=== PATIENT | male | born 1985 | race Caucasian/White ===

== ENCOUNTER 2022-08-02 14:40 | Outpatient (CLI) | payer OTHER ==
--- NOTE | 2022-08-02 15:26 | Sleep Patient Instructions ---
Sleep Center Visit Summary - Patient Visit Information Reason for Visit: 9 month Followup - Patient Instructions Instructions Attached: Sleep Study Home Monitor, Sleep Study Additional Instructions: You will be completing a sleep study, either an in-lab polysomnography (PSG) or home sleep study (HST). You will follow-up in the sleep care office after the sleep study is completed to hear the results and talk about therapy, if needed. - Clinic Information Contact: [facility] [address] [place] [id number] [email or web address] T: [phone]
--- NOTE | 2022-08-02 15:28 | SLEEP CARE CONSULTATION ---
Information from patient questionnaire entered by Odilia Crawford. I have reviewed and concur with the information entered by Odilia Crawford. This document represents the service I personally performed and the decisions made by me, Kateryna Avalos ARNP. History of Present Illness Service Date and Time: 08/02/2022 1440 Reason for follow up: other (9 MONTH F/U STUDY NOT DONE) Prior sleep studies: No HPI additional information: I had the pleasure of seeing KERRIE BANEGAS today regarding the possibility of him having a sleep disorder. His current complaints are unrefreshed sleep, snoring and excessive daytime sleepiness. I saw him in the office about 9 months ago and ordered a sleep study but it was not completed. He had to deploy for work and was unable to get this done. The patient tells me that he normally goes to bed around 8-9 pm, and it takes him approximately 1 minute to fall asleep. He has been told that he snores loudly and irregularly at night. He has been observed to stop breathing in his sleep. His bed partner can still sleep in the same bed. His will nudge him to turn over to reduce snoring. He can recall waking up on the average of 2-3 times during the night. Most of the time he wakes up because of waking him up or need bathroom. He has not awakened for his own snoring, choking, and having to gasp for air. There is a lot of tossing and turning in his sleep. Generally there is no recollection of dreams. He usually wakes up at 0400 and does not feel refreshed. He sometimes has a morning headache. During the day he complains of feeling sleepy and fatigued. He has never fallen asleep while driving nor has any accident due to sleepiness. He usually does not take naps during the day. If he naps, upon falling asleep during the day he denies having vivid dreams. There is no somniloquy (sleep talking) or somnambulism (sleep walking). He has experienced sleep paralysis but no cataplexy, or symptoms of restless leg syndrome. He denies having impaired concentration during the day. Sleep Study - Results Prior sleep studies: No Subjective Initial [place] Sleepiness Scale score: 8 (10/20/2021) Current [place] Sleepiness Scale score: 9 (08/02/22) Allergies and Home Medications Known drug allergies: No Drug allergies reviewed: Yes Home medication list reviewed: Yes (no changes) Review of Systems Review of systems same as previous: Yes (no changes) Physical Exam Vital signs obtained and entered by: ODILIA Harkins MA Blood Pressure: 138/86 (LEFT ARM) Cuff size: regular Heart Rate: 72 O2 Saturation: 98 Height: 6 ft Weight: 235 lb Body Mass Index: 31.8 BMI Classification: Obese Impression and Plan 1. Suspected Obstructive Sleep Apnea-Hypopnea Syndrome, as loud and irregular snoring, observed cessation of breath while asleep, unrefreshed sleep, and daytime fatigue. Narrow oropharynx and obesity are common predisposing factors for obstructive sleep apnea-hypopnea syndrome. I recommend proceeding to polysomnography to confirm the diagnosis and to assess severity. If the patient has significant sleep disordered breathing, a manual CPAP titration study will also be performed to find the optimal treatment pressure. I informed the patient of what the sleep studies involve and after some discussion, obtained agreement to proceed. The pathophysiology of obstructive sleep apnea-hypopnea syndrome was discussed with the patient and health risks of cardiovascular and cerebrovascular disease if not treated. Risks of drowsy driving discussed in detail and patient advised to avoid long distance driving and to stock puller at the first sign of drowsiness. Patient agreed to plan. His BMI is 31.8. * Schedule polysomnography +- manual CPAP titration study and return in 1-2 weeks after the study to discuss result and initiate therapy. * Avoid long distance driving or driving when feeling sleepy. * Avoid alcohol, sedative and muscle relaxant around bedtime. * Attempt to lose weight. * Review instructions provided by trained office staff on how to prepare for the sleep study. * Return for follow-up after sleep study completed. Counseling Topics: Weight loss health impact Visit Type: In Office Time Spent with Patient (minutes): 20 Provider Statement: I spent 100% of the Face to Face Visit with the patient with greater than 50% spent counseling the patient and coordination of care.
[2022-08-02 15:30] VITALS: BP 138/86
== END 2022-08-02 14:41 | disposition home or self-care (01) ==
LOC: SC 14:40
PROVIDERS: ATTEND Nurse Practitioner Family
DX: R06.83 Snoring (principal); G47.8 Other sleep disorders; R06.81 Apnea, not elsewhere classified; R53.83 Other fatigue; E66.9 Obesity, unspecified; Z68.31 Body mass index [BMI] 31.0-31.9, adult
CPT/HCPCS: 99212; 99213

== ENCOUNTER 2022-09-24 12:29 | Outpatient (CLI) | payer OTHER | END 2022-09-24 12:30 | disposition home or self-care (01) | LOC: SC 12:29 | PROVIDERS: ATTEND Nurse Practitioner Family | DX: G47.33 Obstructive sleep apnea (adult) (pediatric) (principal); R09.02 Hypoxemia; E66.9 Obesity, unspecified; Z68.31 Body mass index [BMI] 31.0-31.9, adult | CPT/HCPCS: 95806 ==

== ENCOUNTER 2022-10-18 17:02 | Outpatient (CLI) | payer OTHER ==
--- NOTE | 2022-10-18 16:48 | SLEEP CARE CONSULTATION ---
Information from patient questionnaire entered by Odilia Crawford. I have reviewed and concur with the information entered by Odilia Crawford. This document represents the service I personally performed and the decisions made by me, Kateryna Avalos ARNP. History of Present Illness Service Date and Time: 10/18/2022 1620 Initial [place] Sleepiness Scale score: 8 (10/20/2021) Current [place] Sleepiness Scale score: 9 (10/18/22) Additional HPI information: KERRIE BANEGAS returns via video telehealth visit for follow up and results of the recently performed home sleep study. I explained the pathophysiology behind obstructive sleep apnea. We then spent quite a bit of time discussing different treatment options. For mild obstructive sleep apnea, surgery and oral appliance are alternatives to nasal CPAP therapy but in moderate or severe cases, nasal CPAP is the most effective and reliable treatment. Because apnea is primarily in supine position, then positional management therapy could be effective. Methods discussed such as positioning with pillows, using a T-shirt with tennis balls in the back or commercial products that have a pillow format on back to prevent supine sleep. I reviewed the impact of weight changes on sleep apnea and strongly recommended losing weight. After some discussion, the patient opted to go with the nasal CPAP therapy. Nasal autoCPAP set at 4-15 cmH20 will be ordered with rationale explained. A manual titration study will be ordered if unable to find optimal pressure with office adjustments. I explained how CPAP machine works and what to expect when using the machine. Using CPAP every night in order to get used to it was emphasized. Patient advised to put CPAP mask on before getting into bed so as not to fall asleep without CPAP. To assist acclimation to CPAP use, it could also be used for a short time during day while reading or watching TV. The patient was instructed to call the CPAP supplier to discuss any mechanical problem that may occur. If the mask given is uncomfortable or is difficult to keep on through the night even with adjustment, contact the CPAP supplier as many will replace with another mask style if notified before 30 days. If snoring or perceives is not getting enough air or too much air from the machine, notify this office. Patient counseled not drink alcohol less than 4 hours before bedtime as it can increase snoring and apnea. Patient was cautioned about risks of drowsy driving until sleepiness symptoms resolve. Patient denies drowsy driving. Sleep Study - Results Type of Sleep Study: Home sleep study (COMPLETED 09/24/22) Prior sleep studies: No Polysomnography/Home Sleep Study results: Physician Impression: The quality of the study is good. The length of the study is adequate (> 240 minutes). Please also see the tabulated and graphic data. 1. Obstructive Sleep Apnea-Hypopnea (ICD-10 G47.33), moderate, with an AHI of 20.8/hr and lorraine SaO2 of 87%. During the study, the patient had 90 apneas (90 obstructive, 0 central, 0 mixed) and 95 hypopneas. The longest episode lasted 82.5 seconds. The respiratory events occurred more frequently during supine sleep (supine AHI was 27.3 and non-supine, 5.04). 2. Hypoxemia (ICD-10 R09.02), mild, with the lowest oxygen saturation of 87 % and 6.2 minutes with SaO2 under 90%. Baseline oxygen saturation was normal (Average oxygen saturation was 94%). Allergies and Home Medications Known drug allergies: No Drug allergies reviewed: Yes Home medication list reviewed: Yes (no changes) Allergy and home medication list: Allergies No Known Drug Allergies Allergy (Verified 10/17/22 09:43) Review of Systems Review of systems same as previous: Yes (no changes) Physical Exam Vital signs obtained and entered by: ODILIA Harkins MA Height: 6 ft (PER PT) Weight: 215 lb (PER PT) Body Mass Index: 29.1 BMI Classification: Overweight Impression and Plan 1. Obstructive Sleep Apnea-Hypopnea Syndrome, moderate, with lowest oxygen saturation of 87%. Obviously this is the cause of the patients symptoms of unrefreshed sleep, and excessive daytime sleepiness. As mentioned above, the patient will be started on nasal autoCPAP therapy with pressure set at 4-15 cmH2 O. A manual titration study will be completed if unable to find optimal treatment pressure with office adjustments. Compliance guidelines also reviewed. A copy of compliance guidelines will be given for reference at check out. Because the apnea is more severe supine, I instructed to avoid sleeping supine using pillow positioning until able to start CPAP use. 2. Hypoxemia, mild, with a lorraine oxygen saturation of 87% and 6.2 minutes spent under 90%. His baseline oxygen saturation was normal with an average oxygen saturation of 94%. 2. Overweight, unspecified. Currently patients BMI is 29.1. Obesity increases the risk of apnea, CPAP pressure requirements and overall health risks especially cardiovascular and diabetes. Thus patient is advised to lose weight. * Nasal auto CPAP therapy, pressure at 4-15 cm H2O. * Attempt to lose weight. * Avoid alcohol consumption near bedtime. * Avoid supine sleep until using CPAP. * The patient is again cautioned about driving until sleepiness completely resolves. * Return one month after CPAP obtained. I will assess response to therapy and compliance at that time. Counseling Topics: Sleeping position, Weight loss health impact Visit Type: Telehealth Video Video Type: Doximity Patient Location: Work Location of Provider: Office Patient agrees and consents to this telehealth visit type: Yes Patient agrees to have their insurance billed: Yes Time Spent with Patient (minutes): 21 Provider Statement: I spent 100% of the Telehealth Video Call with the patient with greater than 50% spent counseling the patient and coordination of care.
== END 2022-10-18 17:03 | disposition home or self-care (01) ==
LOC: SC 17:02
PROVIDERS: ATTEND Nurse Practitioner Family
DX: G47.33 Obstructive sleep apnea (adult) (pediatric) (principal); R09.02 Hypoxemia; E66.3 Overweight; Z68.29 Body mass index [BMI] 29.0-29.9, adult

== ENCOUNTER 2023-01-09 06:51 | Outpatient (CLI) | payer OTHER | END 2023-01-09 06:52 | disposition home or self-care (01) | LOC: SC 06:51 | PROVIDERS: ATTEND Nurse Practitioner Family | DX: G47.33 Obstructive sleep apnea (adult) (pediatric) (principal) | CPT/HCPCS: 95805 ==

== ENCOUNTER 2023-01-09 08:00 | Outpatient (CLI) | payer OTHER ==
[2023-01-09 12:33] LABS: MUDS CUTOFF CONCENTRATIONS CUTOFF CONC BELOW:
[2023-01-09 13:04] LABS: AMPHETAMINE SCREEN,URINE NEGATIVE (NEGATIVE); BARBITURATE SCREEN,UR NEGATIVE (NEGATIVE); BENZODIAZEPINES SCREEN, URINE NEGATIVE (NEGATIVE); COCAINE SCREEN URINE NEGATIVE (NEGATIVE); METHADONE SCREEN, URINE NEGATIVE (NEGATIVE); METHAMPHETAMINES SCREEN, URINE NEGATIVE (NEGATIVE); OPIATE SCREEN, URINE NEGATIVE (NEGATIVE); OXYCODONE SCREEN, URINE NEGATIVE (NEGATIVE); PROPOXYPHENE SCREEN, URINE NEGATIVE (NEGATIVE); THC CANNABINOID SCREEN, URINE NEGATIVE (NEGATIVE); TRICYCLIC ANTIDEPRESSANT,URINE NEGATIVE (NEGATIVE)
== END 2023-01-09 23:59 | disposition home or self-care (01) ==
LOC: LAB.R 08:00
PROVIDERS: ATTEND Nurse Practitioner Family
DX: G47.10 Hypersomnia, unspecified (principal)
CPT/HCPCS: 80306

== ENCOUNTER 2023-01-23 09:02 | Outpatient (CLI) | payer OTHER ==
--- NOTE | 2023-01-23 09:26 | Sleep Patient Instructions ---
Sleep Center Visit Summary - Patient Visit Information Reason for Visit: Followup of MWT - Patient Instructions Additional Instructions: You were here for follow up of MWT testing and CPAP therapy. You will be continued on CPAP therapy with pressure at 8-10 cmH2O. You should follow up with sleep care in 3 months. You may contact us sooner for any questions or concerns. - Clinic Information Contact: [facility] [address] [place] [id number] [email or web address] T: [phone]
--- NOTE | 2023-01-23 09:29 | SLEEP CARE CONSULTATION ---
Information from patient questionnaire entered by Odilia Crawford. I have reviewed and concur with the information entered by Odilia Crawford. This document represents the service I personally performed and the decisions made by me, Kateryna Avalos ARNP. History of Present Illness Service Date and Time: 01/23/2023 09 Initial [place] Sleepiness Scale score: 8 (10/20/2021) Current [place] Sleepiness Scale score: 2 (01/23/23) Additional HPI information: KERRIE BANEGAS returns for follow up of the MWT study performed on 01/19/2023. He has moderate obstructive sleep apnea with an AHI of 20.8. The patient was informed of the following findings: The testing showed a normal MWT with no evidence of daytime sleepiness during nap opportunities at two hour intervals. He continues to use his CPAP since last visit with 57/57 days used and 98% compliance. He averages 8 hours 20 minutes. His pressure is still at 7-10 cmH2O with 95th percentile at 9.2 cmH2O. His average residual AHI is at 1.7. I will adjust his pressure to 7-10 cmH2O. Sleep Study - Results Type of Sleep Study: Polysomnography (COMPLETED 09/24/22 MWT COMPLETED 01/09/23) Prior sleep studies: No Polysomnography/Home Sleep Study results: Physicians Interpretation This is a normal MWT. There is no evidence of daytime sleepiness. Allergies and Home Medications Known drug allergies: No Drug allergies reviewed: Yes Home medication list reviewed: Yes (no changes) Allergy and home medication list: Allergies No Known Drug Allergies Allergy (Verified 01/22/23 13:42) Review of Systems Review of systems same as previous: Yes (NO CHANGE) Physical Exam Vital signs obtained and entered by: ODILIA Harkins MA Blood Pressure: 116/74 (LEFT ARM) Cuff size: regular Heart Rate: 73 O2 Saturation: 96 Height: 6 ft (PER PT) Weight: 240 lb 6.4 oz Body Mass Index: 32.5 BMI Classification: Obese Impression and Plan 1. Obstructive Sleep Apnea-Hypopnea Syndrome, moderate, with good treatment compliance and good apnea control. He returns today for results of his Multiple Wakefulness Test (MWT). His findings were normal with no findings of daytime sleepiness. He continues to use his CPAP with significant improvement of his sleep apnea and good compliance. He feels like he could use to increase ramp starting pressure, but I check and his ramp is turned off. I adjusted his pressure to 8-10 cmH2O for patient comfort. He will let me know if the change is uncomfortable. I will have him followup in 3 months. Patient's apnea severity and rationale for treatment to reduce apnea, improve sleep quality and reduce cardiovascular and cerebrovascular events was reviewed. 2. Obesity, unspecified. Currently patients BMI is 32.5. Obesity increases the risk of apnea, CPAP pressure requirements and overall health risks especially cardiovascular and diabetes. Thus patient is advised to lose weight. * Change auto CPAP pressure at 8-10 cmH2O * Notify me if snoring with mask or feeling that the pressure is too much or too little * Attempt to lose weight * Call this office if any problems using CPAP * Return for follow up in 3 months, or sooner if concerns arise Counseling Topics: Weight loss health impact Follow up with Sleep Care in: 3 months Visit Type: In Office Time Spent with Patient (minutes): 12 Provider Statement: I spent 100% of the Face to Face Visit with the patient with greater than 50% spent counseling the patient and coordination of care.
[2023-01-23 09:31] VITALS: BP 116/74; O2SAT 96
== END 2023-01-23 09:03 | disposition home or self-care (01) ==
LOC: SC 09:02
PROVIDERS: ATTEND Nurse Practitioner Family
DX: G47.33 Obstructive sleep apnea (adult) (pediatric) (principal); E66.9 Obesity, unspecified; Z68.32 Body mass index [BMI] 32.0-32.9, adult
CPT/HCPCS: 99212

== ENCOUNTER 2023-10-28 14:19 | Outpatient (CLI) | payer OTHER ==
--- NOTE | 2023-10-28 20:06 | MRI Report ---
PROCEDURE: Thoracic Spine WO INDICATIONS: THORACIC SPINE PAIN TECHNIQUE: Noncontrast sagittal T1 spine echo and T2 fast spin echo, sagittal STIR, axial T1 and T2 fast spin ec ho through the thoracic spine. COMPARISON: None. FINDINGS: Image quality: Excellent. Alignment and Curvature: There is normal bony alignment. Bone Marrow: Marrow is of normal overall signal. No acute vertebral body compression fractures. Spinal Cord: Visualized spinal cord is normal in size and signal. Paraspinous Soft Tissues: No paravertebral masses. Miscellaneous: On axial images, central canal and foramina appear widely patent at all scanned level s. IMPRESSION: Unremarkable MR examination of thoracic spine. No finding to explain patient's symptoms. Reviewed by: Amilcar Perez MD on 10/28/2023 8:05 PM PDT Approved by: Amilcar Perez MD on 10/28/2023 8:05 PM PDT Station ID: [id number]
== END 2023-10-28 14:20 | disposition home or self-care (01) ==
LOC: DI 14:19
PROVIDERS: ATTEND Student in an Organized Health Care Education/Training Program
DX: M54.6 Pain in thoracic spine (principal)